=== PATIENT | male | born 1970 | race Caucasian/White ===

== ENCOUNTER 2016-11-22 22:26 | Emergency (ER) | payer OTHER | END 2016-11-23 02:13 | disposition home or self-care (01) | LOC: FER 22:26 | DX: M25.561 Pain in right knee (principal); E11.9 Type 2 diabetes mellitus without complications; I11.9 Hypertensive heart disease without heart failure; F17.210 Nicotine dependence, cigarettes, uncomplicated; Z89.612 Acquired absence of left leg above knee | CPT/HCPCS: J1885 ==